=== PATIENT | female | born 1940 | race Caucasian/White ===

== ENCOUNTER 2018-07-20 10:52 | Emergency (ER) | payer MEDICARE ==
[~2018-07-20] VITALS: Ht 162.6 cm; Wt 70.8 kg
--- NOTE | 2018-07-20 11:00 | NUR ---
Recieved report from Doretha CORDERO, assumed care. Pt is in no acute distress at this time.
--- NOTE | 2018-07-20 11:04 | NUR ---
report to florentino thompson
[2018-07-20] MEDS ORDERED: ASPIRIN 81 MG CHEW TAB PO ONE (11:15)
[2018-07-20 11:30] LABS: BASOPHILS # (AUTO) 0.1 (0.0-0.1); BASOPHILS % 0.4 % (0.0-1.0); EOSINOPHILS # (AUTO) 0.2 (0.0-0.4); EOSINOPHILS % 1.3 % (0.0-6.0); HEMATOCRIT 43.6 % (34.2-44.1); HEMOGLOBIN 14.7 g/dL (12.0-16.0); LYMPHOCYTES # (AUTO) 6.3 (1.0-3.2); LYMPHOCYTES % 49.4 % (18.0-39.1); MEAN CORPUSCULAR HGB CONC 33.7 g/dL (31-35); MEAN CORPUSCULAR VOLUME 94.8 fL (81-99); MONOCYTES # (AUTO) 0.9 (0.2-0.8); MONOCYTES % 7.1 % (4.4-11.3); NEUTROPHILS # (AUTO) 5.3 (2.1-6.9); NEUTROPHILS % 41.5 % (38.7-80.0); PLATELET COUNT 245 x10e3/uL (140-360); RED CELL DISTRIBUTION WIDTH 13.1 % (11.7-14.4)
[2018-07-20 11:41] LABS: INR 0.93
[2018-07-20 11:42] LABS: PARTIAL THROMBOPLASTIN TIME 26.4 seconds (23.8-35.5)
[2018-07-20 11:49] LABS: ALBUMIN 3.7 g/dL (3.5-5.0); ALBUMIN/GLOBULIN RATIO 1.1 (0.8-2.0); ANION GAP 12.5 mmol/L (8-16); CALCIUM 9.5 mg/dL (8.4-10.2); CREATININE, SERUM 0.95 mg/dL (0.57-1.11); MAGNESIUM 2.2 MG/DL (1.3-2.1); POTASSIUM 4.5 mmol/L (3.5-5.1)
--- NOTE | 2018-07-20 11:54 | Diagnostic Imaging Report ---
History: Trauma, fall Comparison studies: None Technique: Axial images were obtained from the brain and cervical spine. Coronal and sagittal images reconstructed from the axial data. Dose modulation, iterative reconstruction, and/or weight based adjustment of the mA/kV was utilized to reduce the radiation dose to as low as reasonably achievable. Intravenous contrast: None Findings: Head CT: Scalp: Right inferolateral frontal scalp hematoma measures 5.0 x 4.2 x 1.0 cm (SI x AP x TV). Bones: No fractures, blastic or lytic lesions. Extra-axial spaces: No masses. No fluid collections. Brain sulci: Appropriate for age. Ventricles: Normal in size and configuration. No hydrocephalus. Parenchyma: No mass, acute hemorrhage or acute cortical vascular insults. A ill-defined hypodensities in the supratentorial white matter are nonspecific but most compatible with chronic small vessel ischemic changes. Sellar/suprasellar region: No abnormalities. Craniocervical junction: The foramen magnum is patent. No Chiari one malformation. Cervical spine CT: Fractures: None. Soft tissues: No acute abnormalities. Atlantoaxial articulation: Intact with moderate degenerative changes. Alignment: Normal lordosis. Minimal anterolisthesis of C4 on C5 is most likely degenerative in etiology.. Cervicomedullary junction: No abnormalities. The foramen magnum is patent. Vertebrae: No infection or neoplasm. Degenerative changes: Moderate degenerative changes at the anterior atlantodental and basion-dental intervals. Retrodental ligamentous thickening and calcification indents the ventral subarachnoid space at the foramen magnum and upper cervical thecal sac without significant stenosis. Moderately degenerated C5-C6 disc with additional mild multilevel disc degeneration. No significant canal stenosis. Moderate multilevel facet arthrosis. Multilevel uncovertebral and facet arthrosis result in multilevel foraminal stenosis (mild bilaterally at C3-C4 mild to moderate bilaterally at C4-C5, moderate bilaterally at C5-C6, mild bilaterally at C6-C7). Incidental findings: Scattered calcified atherosclerosis with calcified plaque in the carotid bifurcation/carotid bulbs and carotid siphons. IMPRESSION: Head CT: 1. Right frontal scalp hematoma without underlying fracture. 2. No acute intracranial abnormalities. 3. Mild chronic microvascular ischemic changes. Cervical spine CT: 1. No cervical spine fracture or acute subluxation. 2. Multilevel degenerative changes as described. 3. Please note, cannot exclude ligament, spinal cord and or vascular abnormalities on on this exam. Signed by: Dr. Ernesto Emanuel M.D. on 07/20/2018 11:50 AM
[2018-07-20 11:55] LABS: CREATINE KINASE MB 0.9 ng/mL (0-5.0)
--- NOTE | 2018-07-20 12:12 | Diagnostic Imaging Report ---
PELVIS AP 1-2 VIEWS - 1 view HISTORY: Pain COMPARISON: None available. FINDINGS: Bones: No acute displaced fracture. Osseous alignment is within normal limits. Joints: Mild degenerative changes of the hips and lower lumbar spine. Soft tissues: The soft tissues appear unremarkable. IMPRESSION: No acute radiographic abnormality. Signed by: Dr. Vitaly Vaenssa MD on 07/20/2018 12:08 PM
--- NOTE | 2018-07-20 12:13 | Diagnostic Imaging Report ---
KNEE LEFT THREE VIEWS - 3 views HISTORY: Pain COMPARISON: None available. FINDINGS: See impression. IMPRESSION: Transverse mildly displaced fracture of the mid patella with small to moderate size suprapatellar joint effusion. Signed by: Dr. Vitaly Vanessa MD on 07/20/2018 12:10 PM
--- NOTE | 2018-07-20 12:15 | Diagnostic Imaging Report ---
ELBOW LEFT COMPLETE - 3 views HISTORY: Pain COMPARISON: None available. FINDINGS: Bones: No acute displaced fracture. Osseous alignment is within normal limits. Joints: The joint spaces are well-maintained. Soft tissues: Irregular calcification and mild edema in the soft tissues of the posterior distal arm. IMPRESSION: No acute radiographic abnormality. Signed by: Dr. Vitaly Vanessa MD on 07/20/2018 12:12 PM
--- NOTE | 2018-07-20 12:16 | Diagnostic Imaging Report ---
EXAMINATION: CHEST SINGLE (PORTABLE) INDICATION: ^ERMD ORDER ^[id number] ^1100 ^Y COMPARISON: None FINDINGS: AP view TUBES and LINES: None. LUNGS: Lungs are well inflated. Lungs are clear. There is no evidence of pneumonia or pulmonary edema. PLEURA: No pleural effusion or pneumothorax. HEART AND MEDIASTINUM: The cardiomediastinal silhouette is unremarkable. Aorta is mildly calcified and tortuous. BONES AND SOFT TISSUES: No acute osseous lesion. Soft tissues are unremarkable. UPPER ABDOMEN: No free air under the diaphragm. IMPRESSION: No acute thoracic abnormality. Signed by: Dr. Vitaly Vanessa MD on 07/20/2018 12:13 PM
--- NOTE | 2018-07-20 12:20 | NUR ---
Icepack and reposition provided to the pt's left for knee comfort.
[2018-07-20 12:32] LABS: BILIRUBIN,URINE NEGATIVE (NEGATIVE); CLARITY,URINE CLEAR (CLEAR); COLOR,URINE YELLOW (YELLOW); KETONES,URINE NEGATIVE (NEGATIVE); LEUKOCYTE ESTERASE ,URINE NEGATIVE (NEGATIVE); NITRITE,URINE NEGATIVE (NEGATIVE); PROTEIN,URINE DIPSTICK NEGATIVE (NEGATIVE); URINE UROBILINOGEN 0.2 mg/dL (0.2 - 1)
[2018-07-20 12:38] LABS: BACTERIA,URINE FEW /HPF; EPITHELIAL CELLS,URINE FEW /LPF; RBC,URINE 0-5 /HPF (0-5); WBC,URINE (MAN) 0-5 /HPF (0-5)
[2018-07-20] MEDS ORDERED: KETOROLAC TROMETHAMINE 30 MG/ML VIAL IV ONE (14:00)
[2018-07-20 14:22] VITALS: BP 161/86
== END 2018-07-20 14:35 | disposition home or self-care (01) ==
LOC: ER 10:52
DX: S00.83XA Contusion of other part of head, initial encounter (principal); S82.032A Displaced transverse fracture of left patella, initial encounter for closed fracture; S51.012A Laceration without foreign body of left elbow, initial encounter; M25.522 Pain in left elbow; W01.0XXA Fall on same level from slipping, tripping and stumbling without subsequent striking against object, initial encounter; Y92.238 Other place in hospital as the place of occurrence of the external cause; I10 Essential (primary) hypertension; I48.91 Unspecified atrial fibrillation; E03.9 Hypothyroidism, unspecified
CPT/HCPCS: 29530; 36415; 70450; 71045; 72125; 72170; 73080; 73562; 80053; 81001; 82550; 82553; 83735; 83880; 84484; 85025; 85610; 85730; 87086; 93005; 99284; J1885